=== PATIENT | female | born 1945 | race Caucasian/White ===

== ENCOUNTER 2022-06-25 09:45 | Inpatient (IN) | payer MEDICARE ==
[~2022-06-25] VITALS: Ht 160 cm; Wt 56.7 kg
[2022-06-25 09:45] VITALS: BP_SYST 186
--- NOTE | 2022-06-25 10:02 | NUR ---
BROUGHT BACK TO BED #7 AND TRIAGED. REPORT GIVEN TO CLAIRE
[2022-06-25] MEDS ORDERED: NACL 0.9% 1,000 ML IV ONE (10:15)
[2022-06-25] MEDS ORDERED: MORPHINE 4 MG INJ. 4 MG/ML VIAL IVP ONE (10:15)
[2022-06-25] MEDS ORDERED: ONDANSETRON HCL 4 MG/2 ML VIAL IVP ONE (10:15)
--- NOTE | 2022-06-25 10:20 | NUR ---
ASTON Clifton at bedside examining patient.
[2022-06-25 10:28] LABS: BASOPHILS # (AUTO) 0.1 K/uL (0.0-0.2); BASOPHILS % (AUTO) 1.2 % (0.0-2.0); EOSINOPHILS # (AUTO) 0.1 K/uL (0.0-0.4); EOSINOPHILS % (AUTO) 1.6 % (0.0-4.0); HEMATOCRIT 45.1 % (36-48); HEMOGLOBIN 15.3 g/dL (12.0-16.0); LYMPHOCYTES # (AUTO) 1.1 K/uL (1.0-5.5); LYMPHOCYTES % (AUTO) 20.4 % (20.5-51.5); MEAN CORPUSCULAR HEMOGLOBIN 31 pg (27-31); MEAN CORPUSCULAR HGB CONC 34 % (32-36); MEAN CORPUSCULAR VOLUME 92 fL (79.0-98.0); MONOCYTES # (AUTO) 0.4 K/uL (0.0-1.0); NEUTROPHILS # (AUTO) 3.9 K/uL (1.8-7.7); NEUTROPHILS % (AUTO) 69.8 % (40.0-70.0); PLATELET COUNT (AUTO) 296 K/uL (130-430); RED BLOOD CELL COUNT(AUTO) 4.89 MIL/uL (4.2-6.2); RED CELL DISTRIBUTION WIDTH 13.1 % (9.0-15.0); WHITE BLOOD COUNT (AUTO) 5.5 K/uL (4.8-10.8)
--- NOTE | 2022-06-25 10:31 | NUR ---
PT CAME INTO ED WITH FAMILY MEMBER FROM HOME, PT HAS ABD PAIN IN MIDDLE EPIGASTRIC AREA, DID NOT SLEEP WELL LAST NIGHT BECAUSE OF DISCOMFORT, PAIN IS 8/10. PT IS AOX4 NAD EVEN AND UNLABORED RESPIRATIONS, AMBULATORY VITALS 186/78MMHG 75HR, 16RR, 99%SPO2. PT DID NOT VOICE ANY OTHER COMPLAINTS PT IS ON MONITOR AND WILL TREAT ACCORDING TO DR ORDERS. Addendum: 06/25/22 at 1043 by [email or web address] PAIN RADIATES TO LEFT SIDE ACHES, AND STARTED AT 209906/24/22
[2022-06-25 10:35] LABS: BILIRUBIN,URINE NEGATIVE (NEGATIVE); BLOOD, URINE NEGATIVE (NEGATIVE); CLARITY/URINE CLEAR (CLEAR); COLOR,URINE YELLOW (YELLOW); GLUCOSE,URINE NEGATIVE (NEGATIVE); KETONES,URINE NEGATIVE (NEGATIVE); LEUKOCYTE ESTERASE ,URINE NEGATIVE (NEGATIVE); NITRITE, URINE NEGATIVE (NEGATIVE); PH,URINE 7.5 (5.0-8.0); PROTEIN URINE TRACE (NEGATIVE); UROBILINOGEN,URINE 0.2 (0.2-1.0)
[2022-06-25 10:51] LABS: ALANINE AMINOTRANSFERASE 21 U/L (12-78); ALBUMIN 3.6 g/dL (3.4-4.8); ANION GAP 7 (5-15); ASPARTATE AMINOTRANSFERASE 21 U/L (10-37); CALCIUM 8.9 mg/dL (8.4-11.0); CHLORIDE 100 mmol/L (98-107); CREATININE 0.67 mg/dL (0.55-1.30); GLUCOSE 122 mg/dL (70-99); LIPASE 146 U/L (73-393); TOTAL BILIRUBIN 0.6 mg/dL (0.0-1.0); UREA NITROGEN, BLOOD 13 mg/dL (8-21)
[2022-06-25] MEDS ORDERED: MAG HYDROX/AL HYDROX/SIMETH 30 ML, LIDOCAINE VISCOUS 2% 15ML (PO) 15 ML, DICYCLOMINE HC... PO ONE ×3 (11:00)
--- NOTE | 2022-06-25 11:46 | NUR ---
DR YANG MADE AWARE OF BP, DR YANG AT BEDSIDE TO ASSESS PT.
[2022-06-25] MEDS ORDERED: traMADol HCL HCL 50 MG TABLET (ULTRAM) PO ONE (12:00)
--- NOTE | 2022-06-25 12:36 | NUR ---
PAGING FOR ADMISSION PER FACESHEET: [facility] GRP DR[facility] MCKENZ[phone] SPOKE TO SHARIF *PER ED [place], PER PT INSURANCE PAGE SCHN FOR ADMISSION
--- NOTE | 2022-06-25 12:44 | NUR ---
ER DR. YANG SPEAKING WITH DR. MCKENZIE FOR ADMISSION ORDERS. DR. MCKENZIE TO ENTER ADMISSION ORDERS
[2022-06-25] MEDS ORDERED: ONDANSETRON HCL 4 MG/2 ML VIAL IVP PRN (13:00)
--- NOTE | 2022-06-25 14:09 | NUR ---
pt c/o ache pain continues in middle abd 11/28 there has been some relief. vss will cont to monitor.
--- NOTE | 2022-06-25 15:09 | NUR ---
DR SOLORIO IN ROOM FOR EXAM
--- NOTE | 2022-06-25 15:12 | NUR ---
Admit bed requested Patient will be admitted to care of . Admitted to [facility] unit. Diagnosis SBO Inpatient (Yes or No) YES Observation (Yes or No) NO Orientation concerns or request close to nursing station (Yes or No) NO Covid Status NEGATIVE On vent or bipap NO Isolation requirements NO Needs a sitter NO From Home (Yes or if No enter name of facility) HOME Requires Dialysis (Yes or No) NO Med Rec Completed (Yes of No) YES
[2022-06-25] MEDS ORDERED: KCL 20 mEq in D5/0.45NS 1000mL 1,000 ML IV ONE (15:30)
--- NOTE | 2022-06-25 15:52 | NUR ---
REPORT GIVE TO YANE MCGILL, UPDATED ON STATUS, LABS AND VITALS. PT STABLE FOR TRANSFER.
--- NOTE | 2022-06-25 15:53 | NUR ---
Received report from Mone MCGILL from ER
--- NOTE | 2022-06-25 16:30 | NUR ---
ADMISSION NOTE Received patient from ER via wheelchair. Patient admitted with diagnosis of small bowel obstruction. Patient is awake, alert, oriented X 4.Respiration even and unlabored,c/o mild aching pain mid-epigastric on 6/10 pain scale. Abdomen soft flat positive bowel sounds. Start new IV saline lock to right forearm. Patient oriented to hospital room, all Personal belongings checked and Belongings list documented. Call light within reach, bed in low position, continue to monitor.
[2022-06-25 17:23] VITALS: BP_SYST 159
--- NOTE | 2022-06-25 17:43 | NUR ---
CONSULTATION PAGED/CALLED Reason for Consultation: SBO Person Who was Notified: KALEN Consulting Physician: LESLY TAN Ordering Physician: CHERRY MCKENZIE
[2022-06-25 18:16] VITALS: BP_SYST 159
[2022-06-25] MEDS ORDERED: GASTROGRAFIN 120 ML ONE (18:19)
--- NOTE | 2022-06-25 18:35 | NUR ---
X-ray tech at bedside for small bowel series at bedside
--- NOTE | 2022-06-25 18:38 | NUR ---
Patient stable, no c/o N/V, NPO pending orders, will endorse to oncoming nurse.
[2022-06-25 20:00] VITALS: BP_SYST 153
[2022-06-26] VITALS: BP_SYST 152
[2022-06-26 04:00] VITALS: BP_SYST 162
[2022-06-26 06:46] LABS: BASOPHILS # (AUTO) 0.1 K/uL (0.0-0.2); BASOPHILS % (AUTO) 1.1 % (0.0-2.0); EOSINOPHILS # (AUTO) 0.1 K/uL (0.0-0.4); EOSINOPHILS % (AUTO) 2.5 % (0.0-4.0); HEMATOCRIT 42.6 % (36-48); HEMOGLOBIN 14.4 g/dL (12.0-16.0); LYMPHOCYTES % (AUTO) 33.8 % (20.5-51.5); MEAN CORPUSCULAR HEMOGLOBIN 31 pg (27-31); MEAN CORPUSCULAR HGB CONC 34 % (32-36); MEAN CORPUSCULAR VOLUME 92 fL (79.0-98.0); MONOCYTES # (AUTO) 0.7 K/uL (0.0-1.0); MONOCYTES % (AUTO) 11.6 % (1.7-9.3); NEUTROPHILS # (AUTO) 3.1 K/uL (1.8-7.7); PLATELET COUNT (AUTO) 267 K/uL (130-430); RED BLOOD CELL COUNT(AUTO) 4.63 MIL/uL (4.2-6.2); RED CELL DISTRIBUTION WIDTH 12.8 % (9.0-15.0)
[2022-06-26] MEDS ORDERED: MULT-1271 (07:42)
[2022-06-26] MEDS ORDERED: ZINC100T2 PO (07:42)
[2022-06-26] MEDS ORDERED: CALC-1085 PO (07:42)
[2022-06-26] MEDS ORDERED: ASCO500T20 PO (07:42)
[2022-06-26] MEDS ORDERED: MAGN400T10 PO (07:42)
[2022-06-26] MEDS ORDERED: OMEG-158 PO (07:42)
[2022-06-26] MEDS ORDERED: PREN1.4T2 PO (07:42)
[2022-06-26 07:55] LABS: ALANINE AMINOTRANSFERASE 20 U/L (12-78); ALBUMIN 3.1 g/dL (3.4-4.8); ANION GAP 6 (5-15); ASPARTATE AMINOTRANSFERASE 23 U/L (10-37); CALCIUM 9.1 mg/dL (8.4-11.0); CHLORIDE 105 mmol/L (98-107); CREATININE 0.74 mg/dL (0.55-1.30); GLUCOSE 98 mg/dL (70-99); TOTAL BILIRUBIN 0.6 mg/dL (0.0-1.0); UREA NITROGEN, BLOOD 11 mg/dL (8-21)
[2022-06-26 11:58] VITALS: BP_SYST 156
[2022-06-26] MEDS ORDERED: DOCU-144 PO (13:07)
[2022-06-26 15:57] VITALS: BP_SYST 143
[2022-06-26 18:36] VITALS: BP_SYST 137
--- NOTE | 2022-06-26 19:31 | NUR ---
1830: PATIENT DISCHARGED OFF UNIT AT THIS TIME, STABLE, NO COMPLAINTS VOICED, NO OBSERVABLE SIGNS OF DISTRESS NOTED. PATIENT TOLERATED HER DINNER, NO COMPLAINTS OF NAUSEA, VOMITING, DENIES ABDOMINAL PAIN. THIS WEALTH MANAGEMENT MANAGER(PRIMARY RN), REVIEWED ALL DISCHARGE INSTRUCTIONS WITH PATIENT, AND DAUGHTER, THEY BOTH VERBALIZE UNDERSTANDING.
== END 2022-06-26 18:30 | disposition home or self-care (01) | DRG 390 ==
LOC: SED 09:45 → SMU 12:51
PROVIDERS: ADMIT Family Medicine; ATTEND Family Medicine
DX: K56.600 Partial intestinal obstruction, unspecified as to cause (principal); K56.7 Ileus, unspecified; I10 Essential (primary) hypertension; Z20.822 Contact with and (suspected) exposure to COVID-19
CPT/HCPCS: 36415; 71045; 74018; 74021; 74250-TC; 76376; 80053; 81003; 83690; 85025; 99285; J2001; Q9963